=== PATIENT | female | born 1965 | race African-American/Black ===

== ENCOUNTER → 2017-04-21 | Outpatient (CLI) | payer OTHER ==
--- NOTE | 2017-04-21 15:37 | RAD ---
DATE: 04/21/2017. EXAM: DIGITAL SCREEN BILAT W/CAD. HISTORY: Routine mammographic screening. COMPARISON: 04/17/2016. This study was interpreted with the benefit of Computerized Aided Detection (CAD). FINDINGS: The breast parenchyma is heterogeneously dense, which could reduce sensitivity of mammography. Breast parenchyma level C.. There are no suspicious masses, microcalcifications or architectural distortion. Scattered calcifications are benign. BI-RADS CATEGORY: 2 BENIGN FINDING(S). RECOMMENDED FOLLOW-UP: 12M 12 MONTH FOLLOW-UP. PQRS compliance statement: Patient information was entered into a reminder system with a target due date 04/21/2018 for the next mammogram. Mammography is a sensitive method for finding small breast cancers, but it does not detect them all and is not a substitute for careful clinical examination. A negative mammogram does not negate a clinically suspicious finding and should not result in delay in biopsying a clinically suspicious abnormality. "Our facility is accredited by the [employer] Mammography [employer]."
== END | disposition home or self-care (01) ==
LOC: MAMMO 13:54
PROVIDERS: ATTEND Family Medicine
DX: Z12.31 Encounter for screening mammogram for malignant neoplasm of breast (principal)
CPT/HCPCS: G0202; 77067

== ENCOUNTER → 2018-04-22 | Outpatient (CLI) | payer OTHER ==
--- NOTE | 2018-04-22 09:40 | RAD ---
DATE: 04/22/2018 EXAM: DIGITAL SCREEN BILAT W/CAD HISTORY: Routine screening COMPARISON: 04/21/2017 This study was interpreted with the benefit of Computerized Aided Detection (CAD). Breast Density: HETERO The breast parenchyma is heterogenously dense, which could reduce sensitivity of mammography. Breast parenchyma level C. FINDINGS: No new or enlarging breast densities are seen. No suspicious microcalcifications are evident. IMPRESSION: Stable mammograms without evidence of malignancy. BI-RADS CATEGORY: 2 BENIGN FINDING(S) RECOMMENDED FOLLOW-UP: 12M 12 MONTH FOLLOW-UP PQRS compliance statement: Patient information was entered into a reminder system with a target due date for the next mammogram. Mammography is a sensitive method for finding small breast cancers, but it does not detect them all and is not a substitute for careful clinical examination. A negative mammogram does not negate a clinically suspicious finding and should not result in delay in biopsying a clinically suspicious abnormality. "Our facility is accredited by the [employer] Mammography [employer]."
== END | disposition home or self-care (01) ==
LOC: MAMMO 08:57
PROVIDERS: ATTEND Family Medicine
DX: Z12.31 Encounter for screening mammogram for malignant neoplasm of breast (principal)
CPT/HCPCS: 77067

== ENCOUNTER → 2019-04-23 | Outpatient (CLI) | payer OTHER ==
--- NOTE | 2019-04-23 16:38 | KCIC ---
Bilateral digital screening mammograms: Reason for examination: Routine screening. Comparison is made to previous studies dated 04/22/2018 and 04/21/2017. Interpretation was made with the benefit of CAD. The skin and nipples show no abnormalities. No abnormal axillary lymph nodes are seen. The breast parenchyma is heterogeneously dense. (Breast density: Category C.) There continues to be a small nodular density in the 10:00 C position of the left breast which is unchanged. There are no new no dominant masses, suspicious calcifications or architectural distortion. Impression: No evidence of malignancy. Recommend routine screening. Your patient's mammogram demonstrates that she has dense breast tissue (breast density category C or D), which could hide abnormalities, and if she has other risk factors for breast cancer that have been identified, she might benefit from supplemental screening tests that may be suggested by you as her ordering physician. Dense breast tissue, in and of itself, is a relatively common condition. Therefore, this information is not provided to cause undue concern, but rather to raise your awareness and to promote discussion with your patient regarding the presence of other risk factors, in addition to dense breast tissue. Your patient's mammography results will be sent to her. BI-RAD Category 2: Benign. "Our facility is accredited by the [employer] Mammography [employer]." This patient's information has been entered into a reminder system for the patient to be notified with the results of her examination and a target date for the next mammogram. Electronically signed by: Kisha Pa MD (04/23/2019 4:35 PM) [id number]
== END | disposition home or self-care (01) ==
LOC: KCIC MAMMO 16:03
PROVIDERS: ATTEND Family Medicine
DX: Z12.31 Encounter for screening mammogram for malignant neoplasm of breast (principal)
CPT/HCPCS: 77067

== ENCOUNTER → 2020-04-12 | Outpatient (CLI) | payer OTHER ==
--- NOTE | 2020-04-12 14:05 | KCIC ---
Bilateral digital screening mammograms: Reason for examination: Routine screening. Comparison is made to previous studies dated back to 05/29/2015. Interpretation was made with the benefit of CAD. The skin and nipples show no abnormalities. No abnormal axillary lymph nodes are seen. The breast parenchyma is heterogeneously dense. (Breast density: Category C) There continue to be small nodules in the breasts which are stable. There are no new dominant masses, suspicious calcifications or architectural distortion. A few benign calcifications are again seen. Impression: No evidence of malignancy. Recommend routine screening. Your patient's mammogram demonstrates that she has dense breast tissue (breast density category C or D), which could hide abnormalities, and if she has other risk factors for breast cancer that have been identified, she might benefit from supplemental screening tests that may be suggested by you as her ordering physician. Dense breast tissue, in and of itself, is a relatively common condition. Therefore, this information is not provided to cause undue concern, but rather to raise your awareness and to promote discussion with your patient regarding the presence of other risk factors, in addition to dense breast tissue. Your patient's mammography results will be sent to her. BI-RADS Category 2: Benign. "Our facility is accredited by the [employer] Mammography [employer]." This patient's information has been entered into a reminder system for the patient to be notified with the results of her examination and a target date for the next mammogram. Electronically signed by: Kisha Pa MD (04/12/2020 2:02 PM) [email or web address]
== END ==
LOC: KCIC MAMMO 09:57
PROVIDERS: ATTEND Family Medicine
DX: Z12.31 Encounter for screening mammogram for malignant neoplasm of breast (principal); N64.89 Other specified disorders of breast
CPT/HCPCS: 77067

== ENCOUNTER → 2021-04-13 | Outpatient (CLI) | payer OTHER ==
--- NOTE | 2021-04-13 16:43 | KCIC ---
History: Routine Screening PROCEDURE: 3-D tomosynthesis was performed of the breasts bilaterally. 2-D C-view craniocaudal and mediolateral oblique digital mammograms were also generated. The images were also evaluated with Shhmoozeer-aided detection and the CAD results were analyzed. Previous: Bilateral mammogram from 04/12/2020. FINDINGS: Density level B: There are scattered fibroglandular densities. There is a nodule in the outer slightl y inferior right breast, anterior to mid depth, best on MLO 3-D image / and 3B image 14/59. There are no suspicious microcalcifications or areas of architectural distortion. IMPRESSION: Indeterminate nodule in the outer slightly inferior right breast 7 to 8:00 position, appr oximately 3 cm from the nipple. Further evaluation with full field 90 degree mediolateral and spot co mpression CC view and right breast ultrasound may be obtained. BI-RADS Category 0: Incomplete: Need additional imaging evaluation. A leasing representative from the imaging department will contact the patient to schedule for followup. Mammography is the most sensitive method for finding small breast cancers, but it does not detect the m all and is not a substitute for careful clinical examination. A negative mammogram does not negate a clinically suspicious finding and should not result in delay in biopsying a clinically suspicious abnormality. PQRS compliance statement: Patient information was entered into the [employer] reminder system with a ta rget due date for the next screening mammogram . Routine annual screening mammogram in one year advis ed. "Our facility is accredited by the [employer] Mammography [employer]." Electronically signed by: Ximena Padilla MD (04/13/2021 4:40 PM) [id number]
== END ==
LOC: KCIC MAMMO 15:53
PROVIDERS: ATTEND Family Medicine
DX: Z12.31 Encounter for screening mammogram for malignant neoplasm of breast (principal)
CPT/HCPCS: 77063; 77067

== ENCOUNTER → 2021-04-23 | Outpatient (CLI) | payer OTHER ==
--- NOTE | 2021-04-23 14:17 | RAD ---
EXAM: 1. UNILATERAL DIGITAL DIAGNOSTIC MAMMOGRAPHY, RIGHT. 2. RIGHT BREAST ULTRASOUND. HISTORY: Nodule on mammographic screening. Additional imaging is requested. TECHNIQUE: Right full field digital images were obtained in spot compression CC and MLO projections. A 3-D right ML projection was also obtained. Computer-aided detection was applied. COMPARISON: 04/12/2020, 04/23/2021. COMPOSITION: C. The breasts are heterogeneously dense, which may obscure small masses. FINDINGS: The nodule of concern laterally and inferiorly on the right appears is circumscribed/obscur ed. On the 3-D ML projection it appears circumscribed. On today's sonography, this likely corresponds with a mildly comminuted cyst at the 8:00 position 1 cm from the nipple measuring 5 x 5 x 4 mm. A se cond complicated cyst at the 8:00 position 3 cm from the nipple measures 5 x 3 x 4 mm. There is no kelly spicious sonographic finding. Images of the right axilla reveal no suspicious lymph nodes. Coarse marie cifications are benign. BI-RADS CATEGORY 3: Probably Benign. RECOMMENDATION: 1. The mammographic nodule of concern likely corresponds with a complicated cyst at the 8:00 position sonographically. Six-month follow-up right diagnostic mammography is recommended to confirm stabilit y of the mammographic finding and concordance with the benign sonographic finding. Electronically signed by: Peyman Joel MD (04/23/2021 2:15 PM) [email or web address]
== END ==
LOC: MAMMO 12:48
PROVIDERS: ATTEND Family Medicine
DX: N60.01 Solitary cyst of right breast (principal)
CPT/HCPCS: 76641; 77065; G0279; 77061

== ENCOUNTER → 2021-10-25 | Outpatient (CLI) | payer OTHER ==
--- NOTE | 2021-10-25 11:31 | RAD ---
PROCEDURE: US BREAST RT, MG DIGITAL UNILAT DIAGNOSTIC MAMMO WITH JOSE L HISTORY: The patient is 55 years old and is seen for Reason: abnormal mammo/f/u / Spl. Instructions: / History: . COMPARISON: April 23, 2021 and April 13, 2021 TECHNIQUE: Right breast CC and MLO views targeted right breast ultrasound was performed. DENSITY: The breast parenchyma is heterogeneously dense. This may lower the sensitivity of mammograph y. FINDINGS: Mammogram: Well-circumscribed mass within the right outer breast, unchanged. Benign-appearing calcifi cations. ULTRASOUND: Unchanged hypoechoic lesion within the right breast 8:00 position 1 cm from the nipple me asures 0.5 x 0.4 x 0.5 cm. No suspicious posterior shadowing. Mildly prominent retroareolar duct. No pathologic lymphadenopathy within the right axilla. IMPRESSION: 1. Unchanged right breast complicated cyst. Recommend return to annual screening with target screeni ng date April 2022. Recommend annual screening mammograms per [employer] guidelines. BI-RADS category 2 Benign Patient entered into a reminder system for annual screening mammogram. Electronically signed by: Jesus Barrios DO (10/25/2021 11:29 AM) [email or web address]
== END ==
LOC: MAMMO 10:25
PROVIDERS: ATTEND Family Medicine
DX: Z09 Encounter for follow-up examination after completed treatment for conditions other than malignant neoplasm (principal); N60.01 Solitary cyst of right breast; R92.8 Other abnormal and inconclusive findings on diagnostic imaging of breast; N64.89 Other specified disorders of breast
CPT/HCPCS: 76641; 77065; G0279; 77061